=== PATIENT | male | born 1995 | race Caucasian/White ===

== ENCOUNTER 2022-01-23 09:03 | Emergency (ER) | payer OTHER, MEDICAID ==
[~2022-01-23] VITALS: Ht 175.3 cm; Wt 63.0 kg
[2022-01-23 09:05] VITALS: BP 106/70
[2022-01-23] MEDS ORDERED: ACETAMINOPHEN 325MG TABLET PO ONE (09:15)
[2022-01-23] MEDS ORDERED: NAPR-1176 MT (10:15)
== END 2022-01-23 10:26 | disposition home or self-care (01) ==
LOC: ER 09:21
DX: M54.50 Low back pain, unspecified (principal); Z88.0 Allergy status to penicillin; W06.XXXA Fall from bed, initial encounter; Y93.89 Activity, other specified; Y92.89 Other specified places as the place of occurrence of the external cause; Y99.8 Other external cause status
CPT/HCPCS: 72100; 72170; 99284

== ENCOUNTER 2022-03-18 11:40 | Emergency (ER) | payer OTHER, MEDICAID ==
[~2022-03-18] VITALS: Ht 182.9 cm; Wt 77.5 kg
[~2022-03-18 11:40] MED LIST: NAPR-1176 MT
[2022-03-18] MEDS ORDERED: FAMOTIDINE 20MG TABLET PO ONE (12:30)
[2022-03-18] MEDS ORDERED: PREDNISONE 20MG TABLET PO ONE (12:30)
[2022-03-18] MEDS ORDERED: SODIUM CHLORIDE 0.9% 1,000 ML IV ONE (12:30)
[2022-03-18] MEDS ORDERED: DIPHENHYDRAMINE 50MG CAPSULE PO ONE (12:30)
[2022-03-18 13:44] VITALS: BP 135/75
[2022-03-18] MEDS ORDERED: EPIN0.3P3 IM (13:50)
[2022-03-18] MEDS ORDERED: DIPH25CA83 MT (13:51)
== END 2022-03-18 14:10 ==
LOC: ER 11:40
DX: T78.1XXA Other adverse food reactions, not elsewhere classified, initial encounter (principal); T78.49XA Other allergy, initial encounter; R06.02 Shortness of breath; Z91.010 Allergy to peanuts; Z88.0 Allergy status to penicillin; X58.XXXA Exposure to other specified factors, initial encounter
CPT/HCPCS: 96360; 99284; J7030; J7512; Q0163